=== PATIENT | male | born 1955 | race Caucasian/White ===

== ENCOUNTER → 2021-11-03 | Outpatient (CLI) | payer MEDICARE, BC ==
--- NOTE | 2021-11-03 15:12 | RAD ---
CT THORAX WO History: Lung nodule Comparison: None. Technique: Noncontrast CT of the chest. Findings: Assessment is limited by lack of IV contrast. Cardiovascular: Mild aortic calcification. Mild to moderate coronary artery calcification. Normal hea rt size. No pericardial effusion. Mediastinum and selvin: Unremarkable thyroid. No enlarged mediastinal or hilar adenopathy. Moderate hia ronnie hernia. Airways, lungs and pleura: Airways are patent. Left upper lobe 5 mm nodule (axial 59). No airspace co nsolidation, no pleural effusion or pneumothorax. Upper abdomen: Moderate hiatal hernia as above. No acute abdominal findings. Osseous structures and soft tissues: Healing lateral right ninth rib fracture. Degenerative osteophyt es in the thoracic spine. Impression: 1. Left upper lobe 5 mm pulmonary nodule. Recommend follow-up according to 2017 Fleischner Society G uidelines for solid pulmonary nodules: <6 mm: In a low risk patient, no routine follow-up. In a high risk patient (history of smoking or other known risk factors), optional CT at 12 months. Certain pait ents with suspicious nodule morphology, upper lobe location, or both may warrant 12-month follow-up. 2. Moderate hiatal hernia. 3. Mild to moderate coronary artery calcification. 4. Healing lateral right ninth rib fracture. ------ Exposure: One or more of the following individualized dose reduction techniques were utilized for thi s examination: 1. Automated exposure control 2. Adjustment of the mA and/or kV according to patient size 3. Use of iterative reconstruction technique. Electronically signed by: Oleg Vieira MD (11/03/2021 3:10 PM) [facility]
== END ==
LOC: CT 13:45
PROVIDERS: ATTEND Family Medicine
DX: R91.1 Solitary pulmonary nodule (principal); I70.0 Atherosclerosis of aorta; I25.10 Atherosclerotic heart disease of native coronary artery without angina pectoris; K44.9 Diaphragmatic hernia without obstruction or gangrene; M25.78 Osteophyte, vertebrae; S22.31XD Fracture of one rib, right side, subsequent encounter for fracture with routine healing; X58.XXXD Exposure to other specified factors, subsequent encounter
CPT/HCPCS: 71250